=== PATIENT | female | born 1945 | race Caucasian/White ===

== ENCOUNTER 2025-02-09 15:37 | Emergency (ER) | payer MEDICARE ==
[2025-02-09] MEDS ORDERED: Bacitracin Oint 1 GM U/D Packet TOP ONE (17:21)
== END 2025-02-09 19:43 | disposition home or self-care (01) ==
LOC: JP.ED 15:37
DX: S80.02XA Contusion of left knee, initial encounter (principal); E11.9 Type 2 diabetes mellitus without complications; M19.90 Unspecified osteoarthritis, unspecified site; Z79.899 Other long term (current) drug therapy; Z79.1 Long term (current) use of non-steroidal anti-inflammatories (NSAID); Z79.811 Long term (current) use of aromatase inhibitors; Z90.49 Acquired absence of other specified parts of digestive tract; Z91.041 Radiographic dye allergy status; W01.198A Fall on same level from slipping, tripping and stumbling with subsequent striking against other object, initial encounter
CPT/HCPCS: 70450; 72125; 73502-26-LT; 73502-LT; 73562-26-LT; 73562-LT; 76377; 82947; 99283; 99284